=== PATIENT | female | born 1995 | race Caucasian/White ===

== ENCOUNTER 2022-10-31 10:44 | Emergency (ER) | payer BC ==
[2022-10-31] MEDS ORDERED: Sodium Chloride 0.9% 1,000 ML IV ONE (10:54)
[2022-10-31 11:58] LABS: POTASSIUM,K 4.1 mmol/L (3.5-5.1)
[2022-10-31 13:00] VITALS: BP 111/71; PULSE 92
== END 2022-10-31 12:59 | disposition home or self-care (01) ==
LOC: MW.ED 10:44
DX: O03.9 Complete or unspecified spontaneous abortion without complication (principal); Z91.048 Other nonmedicinal substance allergy status
CPT/HCPCS: 36415; 76817; 80053; 81001; 84702; 85025; 86900; 86901; 96360; 99284; J7030; 99283

== ENCOUNTER 2024-02-13 16:55 | Inpatient (IN) | payer MEDICAID ==
[2024-02-13 17:57] LABS: APPEARANCE,URINE SLT CLOUDY; BILIRUBIN,URINE NEGATIVE (NEGATIVE); COLOR,URINE YELLOW; GLUCOSE,URINE NEGATIVE (NEGATIVE); KETONES,URINE NEGATIVE (NEGATIVE); LEUKOCYTE ESTERASE,URINE NEGATIVE (NEGATIVE); NITRITE,URINE NEGATIVE (NEGATIVE); OCCULT BLOOD,URINE LARGE (NEGATIVE); PROTEIN,URINE 100 mg/dL (NEGATIVE)
[2024-02-13] MEDS ORDERED: Methylergonovine 0.2 MG/1 ML Amp IM PRN (17:58)
[2024-02-13] MEDS ORDERED: Carboprost Tromethamine 250 MCG/1 mL Vial IM PRN (17:58)
[2024-02-13] MEDS ORDERED: Sodium Chloride 0.9% 10 ML Syringe FLUSH PRN (17:58)
[2024-02-13] MEDS ORDERED: Butorphanol 2 MG/ML SDV IVPUSH PRN (17:58)
[2024-02-13] MEDS ORDERED: Water For Irrigation,Sterile 1,000 ML Container IRR PRN (17:58)
[2024-02-13] MEDS ORDERED: Sodium Chloride 0.9% 2.5 ML Syringe FLUSH PRN (17:58)
[2024-02-13] MEDS ORDERED: Tranexamic Acid IN NACL,ISO-OS 1,000 MG in Premix Bag 1 BAG IV PRN (17:58)
[2024-02-13] MEDS ORDERED: Lidocaine 1% 50 ML MDV INJECT PRN (17:58)
[2024-02-13] MEDS ORDERED: Sodium Chloride 0.9% 20 ML SDV IV PRN (17:58)
[2024-02-13] MEDS ORDERED: Misoprostol 200 MCG Tab PO PRN (17:58)
[2024-02-13] MEDS ORDERED: Oxytocin/0.9 % Sodium Chloride 30 UNIT/500 ML BAG IV SCH (18:00)
[2024-02-13 18:12] LABS: HEMATOCRIT 34.3 % (37.0-47.0); HEMOGLOBIN 11.7 g/dL (12.0-16.0); MEAN CORPUSCULAR HEMOGLOBIN 28.2 pg (28.0-32.0); MEAN CORPUSCULAR HGB CONC 34.1 g/dL (32.0-36.0); MEAN CORPUSCULAR VOLUME 82.7 fL (83.0-99.0); MEAN PLATELET VOLUME 10.8 fL (9.4-12.3); PLATELET COUNT,PLT 305 K/uL (150-400); RED BLOOD CELL COUNT 4.15 M/uL (4.10-5.30); WHITE BLOOD CELL COUNT,WBC 11.69 K/uL (3.9-11.3)
[2024-02-13] MEDS ORDERED: Phenylephrine HCl In 0.9% NaCl 1 MG/10 ML Syringe IVPUSH PRN (18:54)
[2024-02-13] MEDS ORDERED: ePHEDrine 50 MG/ML SDV IVPUSH PRN ×2 (18:54)
[2024-02-13] MEDS: Lactated Ringers 1,000 ML IV SCH (22:20)
[2024-02-13] MEDS: Ondansetron 4 MG/2 ML SDV IVPUSH PRN (23:12)
[2024-02-14] MEDS: Ropivacaine HCl/PF 400 MG in Premix Bag 1 BAG EPIDUR SCH (02:07)
[2024-02-14] MEDS: Terbutaline 1 MG/ML SDV ONE (02:27)
[2024-02-14] MEDS ORDERED: fentaNYL 100 MCG/2 ML SDV ONE ×2 (02:44→02:58)
[2024-02-14] MEDS ORDERED: Ketamine HCL/NACL, ISO-OSM 50 MG/5 ML Syringe ONE (02:45)
[2024-02-14] MEDS ORDERED: ceFAZolin 2 GM Vial ONE (02:46)
[2024-02-14] MEDS ORDERED: Oxytocin 10 Units/1 ML SDV ONE (02:47)
[2024-02-14] MEDS ORDERED: Dexamethasone 4 MG/ML 5 ML MDV ONE (02:47)
[2024-02-14] MEDS ORDERED: Ondansetron 4 MG/2 ML SDV ONE ×2 (02:47→03:11)
[2024-02-14] MEDS ORDERED: Morphine PF 10 MG/10 ML SDV ONE (02:53)
[2024-02-14] MEDS ORDERED: Metoprolol Tartrate 5 MG/5 ML SDV ONE (02:55)
[2024-02-14] MEDS ORDERED: Ropivacaine 0.5% 5 MG/ML 30 ML SDV ONE (02:55)
[2024-02-14] MEDS ORDERED: Azithromycin 500 MG Vial ONE (03:03)
[2024-02-14] MEDS ORDERED: Sennosides 8.6 MG Tab PO PRN (03:46)
[2024-02-14] MEDS ORDERED: Tranexamic Acid 1,000 MG in Sodium Chloride 0.9% 100 ML IV PRN (03:46)
[2024-02-14] MEDS ORDERED: oxyCODONE 5 MG Tab PO PRN (03:46)
[2024-02-14] MEDS ORDERED: Polyethylene Glycol 3350 Powder 17 GM Packet PO PRN (03:46)
[2024-02-14] MEDS ORDERED: Misoprostol 50 MCG (1/2 of 100 MCG) Tab RECTAL PRN (03:46)
[2024-02-14] MEDS ORDERED: Sodium Chloride 0.9% 2.5 ML Syringe FLUSH PRN (03:46)
[2024-02-14] MEDS ORDERED: Ondansetron 4 MG/2 ML SDV IVPUSH PRN ×3 (03:46→05:47)
[2024-02-14] MEDS ORDERED: Measles, Mumps & Rubella Vaccine 0.5 ML SDV SUBCUT ONE (03:46)
[2024-02-14] MEDS ORDERED: Bisacodyl 5 MG Tab PO PRN (03:46)
[2024-02-14] MEDS ORDERED: Sodium Chloride 0.9% 10 ML Syringe FLUSH PRN (03:46)
[2024-02-14] MEDS ORDERED: Oxytocin/0.9 % Sodium Chloride 30 UNIT/500 ML BAG IV SCH (04:00)
[2024-02-14 04:02] LABS: PH,UMBILICAL ARTERIAL 7.209 (7.18-7.38); PH,UMBILICAL VENOUS 7.299 (7.25-7.45)
[2024-02-14] MEDS: Ketorolac 30 MG/ML SDV IVPUSH SCH (05:22)
[2024-02-14] MEDS: Acetaminophen 500 MG Tab PO SCH (05:23)
[2024-02-14] MEDS: metroNIDAZOLE 250 MG Tab PO SCH (05:24)
[2024-02-14 05:28] LABS: BASOPHILS ABSOLUTE AUTO 0.04 K/uL (0.00-0.20); BASOPHILS PERCENT AUTO 0.2 % (0.0-1.0); EOSINOPHILS ABSOLUTE AUTO 0.03 K/uL (0.00-0.45); EOSINOPHILS PERCENT AUTO 0.1 % (0.0-6.0); HEMATOCRIT 31.7 % (37.0-47.0); HEMOGLOBIN 10.8 g/dL (12.0-16.0); IMMATURE GRAN ABSOLUTE AUTO 0.22 K/uL (0.00-0.05); LYMPHOCYTES ABSOLUTE AUTO 2.06 K/uL (1.00-4.80); LYMPHOCYTES PERCENT AUTO 9.4 % (24.0-44.0); MEAN CORPUSCULAR HEMOGLOBIN 28.7 pg (28.0-32.0); MEAN CORPUSCULAR HGB CONC 34.1 g/dL (32.0-36.0); MEAN CORPUSCULAR VOLUME 84.3 fL (83.0-99.0); MEAN PLATELET VOLUME 10.2 fL (9.4-12.3); MONOCYTES ABSOLUTE AUTO 0.77 K/uL (0.00-0.80); MONOCYTES PERCENT AUTO 3.5 % (0.0-8.0); NEUTROPHILS ABSOLUTE AUTO 18.87 K/uL (1.80-7.70); NEUTROPHILS PERCENT AUTO 85.8 % (41.0-71.0); PLATELET COUNT,PLT 313 K/uL (150-400); RED BLOOD CELL COUNT 3.76 M/uL (4.10-5.30); WHITE BLOOD CELL COUNT,WBC 21.99 K/uL (3.9-11.3)
[2024-02-14] MEDS: Naloxone 0.4 MG/ML SDV IVPUSH ONE (05:32)
[2024-02-14] MEDS: dexmedeTOMIDine HCl 200 MCG/2 ML SDV ONE (05:33)
[2024-02-14] MEDS ORDERED: droPERidol 5 MG/2 ML SDV IVPUSH PRN (05:47)
[2024-02-14] MEDS ORDERED: fentaNYL 100 MCG/2 ML SDV IVPUSH PRN (05:47)
[2024-02-14] MEDS ORDERED: diphenhydrAMINE 50 MG/ML SDV IVPUSH PRN (05:47)
[2024-02-14] MEDS ORDERED: fentaNYL 50 MCG/ML SDV IVPUSH PRN (05:47)
[2024-02-14] MEDS ORDERED: Naloxone 0.4 MG/ML SDV IVPUSH PRN (05:47)
[2024-02-14] MEDS ORDERED: Albuterol 0.083% 2.5 MG/3 ML Neb Soln NEB PRN (05:47)
[2024-02-14] MEDS ORDERED: Metoclopramide 10 MG/2 ML SDV IVPUSH PRN (05:47)
[2024-02-14] MEDS ORDERED: HYDROmorphone 1 MG/ML Syringe IVPUSH PRN (05:47)
[2024-02-14] MEDS ORDERED: Morphine 2 MG/ML SYRINGE IVPUSH PRN (05:47)
[2024-02-14] MEDS ORDERED: Cephalexin 500 MG Cap PO SCH (06:00)
[2024-02-14] MEDS: Acetaminophen 1,000 MG in Premix Bag 1 BAG IV SCH ×2 (06:08→12:27)
[2024-02-14] MEDS: Docusate Sodium 100 MG Cap PO SCH (09:35)
[2024-02-14] MEDS: Cephalexin 500 MG Cap PO SCH (09:36)
[2024-02-15] MEDS: Ondansetron 4 MG/2 ML SDV IVPUSH PRN (02:48)
[2024-02-15] MEDS: Ibuprofen 800 MG Tab PO SCH (05:57)
[2024-02-15] MEDS: oxyCODONE 5 MG Tab PO PRN (13:07)
[2024-02-15] MEDS: Acetaminophen 500 MG Tab PO SCH (16:08)
[2024-02-16] MEDS: Acetaminophen 500 MG Tab PO SCH (05:04)
[2024-02-16] MEDS ORDERED: Cephalexin 500 MG Cap PO SCH (05:45)
[2024-02-16] MEDS: Acetaminophen/oxyCODONE 325-5 MG Tab PO PRN (14:23)
[2024-02-16 17:35] VITALS: BP 119/66; PULSE 74
== END 2024-02-16 16:00 | disposition home or self-care (01) | DRG 788 ==
LOC: MW.OBCHECK 16:55 → MW.OB 16:56 → MW.OBCHECK 17:58 → MW.OB 17:58 → OBSVTOIN 02-14 02:48 → MW.OB 02-14 09:39
PROVIDERS: ADMIT Obstetrics & Gynecology; ATTEND Obstetrics & Gynecology
PROC: 3E0R3BZ Introduction of Anesthetic Agent into Spinal Canal, Percutaneous Approach (ICD-10-PCS; 2024-02-14)
PROC: 00HU33Z Insertion of Infusion Device into Spinal Canal, Percutaneous Approach (ICD-10-PCS; 2024-02-14)
PROC: 10D00Z1 Extraction of Products of Conception, Low, Open Approach (ICD-10-PCS; principal; 2024-02-14 02:41)
DX: O42.02 Full-term premature rupture of membranes, onset of labor within 24 hours of rupture (principal); O76 Abnormality in fetal heart rate and rhythm complicating labor and delivery; O99.214 Obesity complicating childbirth; O69.81X0 Labor and delivery complicated by cord around neck, without compression, not applicable or unspecified; Z3A.37 37 weeks gestation of pregnancy; Z37.0 Single live birth
CPT/HCPCS: 01967; 36415; 59025; 64488; 74018; 74018-26; 81003; 82803; 84112; 85025; 85027; 86592; 86850; 86900; 86901; A9270-GY; J0131; J0456; J0690; J1100; J1885; J2274; J2405; J2590; J2795; J3010; J3105; J3490; J7120